=== PATIENT | male | born 1955 | race Caucasian/White ===

== ENCOUNTER 2016-09-25 21:15 | Emergency (ER) | payer OTHER ==
[~2016-09-25] VITALS: Ht 175.3 cm; Wt 78.3 kg
--- OUTSIDE RECORDS SUMMARY | 2016-09-25 21:19 | XMS REPORT | Referral Summary ---
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 Name Role Phone Betsy Mcfarland Primary Care Physician [phone] Encounter VC Date(s): 12/31/15 - 12/31/15 [facility] [address] [place], [place] [address] Discharge Diagnosis: Cellulitis Discharge Disposition: 01-Home or Self Care Attending Physician: Castro De La Vega DO Admitting Physician: Castro De La Vega DO Vital Signs Most recent to 1 oldest [Reference Range]: Temperature Oral 36.7 degC [35.8-37.3 degC] (12/31/15 5:49 PM) Peripheral Pulse 84 bpm Rate [60-100 bpm] (12/31/15 7:30 PM) Respiratory Rate 16 br/min [14-20 br/min] (12/31/15 7:30 PM) Blood Pressure 183/110 mmHg [90-140/60-90 mmHg] *HI* (12/31/15 7:30 PM) SpO2 92 % 1 (12/31/15 5:49 PM) 1Result Comment: pt states "emphysema, it is always low" Problem List Condition Effective Dates Status Health Status Informant Emphysema Active patient lung(Confirmed) Tobacco Active patient user(Confirmed) Allergies, Adverse Reactions, Alerts No Known Medication Allergies Medications Bactrim DS 800 mg-160 mg oral tablet 1 tabs, Oral, BID, X 10 days, # 20 tabs, 0 Refill(s) Start Date: 12/31/15 Stop Date: 01/10/16 Status: Ordered Flomax mg, Oral, Daily, 0 Refill(s) Start Date: 12/23/14 Status: Ordered glipiZIDE Oral, Daily, 0 Refill(s) Start Date: 12/23/14 Status: Ordered Keflex 500 mg oral capsule 500 mg 1 caps, Oral, q8hr, X 10 days, # 30 caps, 0 Refill(s) Start Date: 12/31/15 Stop Date: 01/10/16 Status: Ordered Micardis Oral, Daily, 0 Refill(s) Start Date: 12/23/14 Status: Ordered morphine 30 mg oral tablet 30 mg 1 tabs, Oral, q4hr, as needed for pain, 0 Refill(s) Start Date: 12/31/15 Status: Ordered naproxen 500 mg oral tablet 500 mg 1 tabs, Oral, BID, as needed for pain, # 20 tabs, 0 Refill(s) Start Date: 12/23/14 Status: Ordered oxyCODONE Oral, 0 Refill(s) Start Date: 12/23/14 Status: Ordered Results Hematology Most recent to 1 oldest [Reference Range]: WBC [4.8-10.8 9.7 10*3/uL 10*3/uL] (12/31/15 6:23 PM) RBC [4.60-6.20] 5.34 (12/31/15 6:23 PM) Hgb [14.0-18.0 16.3 gm/dL gm/dL] (12/31/15 6:23 PM) Hct [42.0-52.0 %] 48.2 % (12/31/15 6:23 PM) MCV [82.0-99.0 fL] 90.3 fL (12/31/15 6:23 PM) MCH [27.0-32.0 pg] 30.5 pg (12/31/15 6:23 PM) MCHC [32.0-36.0 33.8 gm/dL gm/dL] (12/31/15 6:23 PM) RDW [11.5-14.5 %] 14.7 % *HI* (12/31/15 6:23 PM) Platelet [150-400 267 10*3/uL 10*3/uL] (12/31/15 6:23 PM) MPV [9.4-12.3 fL] 11.0 fL (12/31/15 6:23 PM) Immature 0.1 % Granulocytes (12/31/15 6:23 PM) [0.0-1.0 %] Neutrophils [51-75 54 % %] (12/31/15 6:23 PM) Lymphocytes [20-46 32 % %] (12/31/15 6:23 PM) Monocytes [4-11 %] 11 % (12/31/15 6:23 PM) Eosinophils [0-4 %] 3 % (12/31/15 6:23 PM) Basophils [0-2 %] 1 % (12/31/15:23 PM) Neutro Absolute 5.29 10*3 [1.90-7.00 10*3] (12/31/15:23 PM) Lymph Absolute 3.07 10*3 [0.80-3.30 10*3] (12/31/15 6:23 PM) [place] Absolute 1.06 10*3 [0.30-1.00 10*3] *HI* (12/31/15:23 PM) Eos Absolute 0.24 10*3 [0.00-0.50 10*3] (12/31/15:23 PM) Baso Absolute 0.05 10*3 [0.00-0.20 10*3] (12/31/15:23 PM) Chemistry Most recent to 1 oldest [Reference Range]: Sodium Lvl [136-144 138 mEq/L mEq/L] (12/31/15:25 PM) Potassium Lvl 3.7 mEq/L [3.6-5.1 mEq/L] (12/31/15:25 PM) Chloride [99-109 103 mEq/L mEq/L] (12/31/15:25 PM) CO2 [22-32 mEq/L] 27 mEq/L (12/31/15:25 PM) AGAP [3-20] 8 (12/31/15:25 PM) BUN [4-20 mg/dL] 7 mg/dL (12/31/15 6:25 PM) Glucose Lvl [70-100 148 mg/dL mg/dL] *HI* (12/31/15:25 PM) Creatinine Lvl 0.54 mg/dL [0.64-1.27 mg/dL] *LOW* (12/31/15 6:25 PM) eGFR [>60] >60 1 (12/31/15:25 PM) Calcium Lvl 8.4 mg/dL [8.6-10.0 mg/dL] *LOW* (12/31/15 6:25 PM) 1Result Comment: Multiply eGFR results by 1.21 for race. Urinalysis Most recent to 1 oldest [Reference Range]: Type Venous (12/31/15 6:18 PM) Immunizations No data available for this section Procedures No data available for this section Social History Social History Type Response Smoking Status Current every day smoker; Type: Cigarettes Assessment and Plan No data available for this section
--- OUTSIDE RECORDS SUMMARY | 2016-09-25 21:19 | XMS REPORT | Referral Summary ---
Author Author [facility] Organization [facility] Address Unknown Phone Unavailable Care Team Providers Care Caponizer Name Role Phone No PCP, Pt States Primary Care Physician [phone] Encounter VC Date(s): 12/23/14 - 12/24/14 [facility] [address] [place] [address] Final: UNSPECIFIED DISORDER OF THE TEETH AND SUPPORTING STRUCTURES Discharge Diagnosis: Pain, dental Discharge Disposition: 01-Home or Self Care Attending Physician: Baljit Hernández MD Admitting Physician: Baljit Hernández MD Vital Signs Most recent to 1 oldest [Reference Range]: Temperature Oral 37.2 degC [35.8-37.3 degC] (12/24/14 12:02 AM) Peripheral Pulse 89 bpm Rate [60-100 bpm] (12/24/14 12:02 AM) Respiratory Rate 19 br/min [14-20 br/min] (12/24/14 12:02 AM) Blood Pressure 166/98 mmHg [90-140/60-90 mmHg] *HI* (12/24/14 12:02 AM) SpO2 99 % (12/24/14 12:02 AM) Problem List Condition Effective Dates Status Health Status Informant Emphysema Active patient lung(Confirmed) Tobacco Active patient user(Confirmed) Allergies, Adverse Reactions, Alerts No Known Medication Allergies Medications Flomax mg, Oral, Daily, 0 Refill(s) Start Date: 12/23/14 Status: Ordered glipiZIDE Oral, Daily, 0 Refill(s) Start Date: 12/23/14 Status: Ordered Micardis Oral, Daily, 0 Refill(s) Start Date: 12/23/14 Status: Ordered naproxen 500 mg oral tablet 500 mg 1 tabs, Oral, BID, as needed for pain, # 20 tabs, 0 Refill(s) Start Date: 12/23/14 Status: Ordered oxyCODONE Oral, 0 Refill(s) Start Date: 12/23/14 Status: Ordered Results No data available for this section Immunizations No data available for this section Procedures No data available for this section Social History Social History Type Response Smoking Status Current every day smoker; Type: Cigarettes Assessment and Plan No data available for this section
--- OUTSIDE RECORDS SUMMARY | 2016-09-25 21:19 | XMS REPORT | Continuity of Care Document ---
Author Author [facility] Organization [facility] Address Unknown Phone Unavailable Allergies Active Description Code Type Severity Reaction Onset Reported/Identified Relationship to Patient Clinical Status Yes No Known Medication Allergies NKMA N/A N/A 12/23/2014 Medications Medication Packaging Start Date Stop Date Route Dosage Sig traMADol(Ultram 50 mg oral tablet) 1 tabs 12/23/20142014 Oral 50 mg 50 mg=1 tabs, Oral, q6hr, for 3 days, PRN: as needed for pain, 12 tabs, 0 Refill(s) penicillin V potassium(penicillin V potassium 500 mg oral tablet) 1 tabs 201401/02/2015 Oral 500 mg 500 mg=1 tabs, Oral, q6hr, for 10 days, 40 tabs, 0 Refill(s) oxyCODONE(oxyCODONE) 12/23/2014 Oral Oral, 0 Refill(s) telmisartan(Micardis) 12/23/2014 Oral Oral, Daily, 0 Refill (s) glipiZIDE(glipiZIDE) 12/23/2014 Oral Oral, Daily, 0 Refill( s) naproxen(naproxen 500 mg oral tablet) 1 tabs 12/23/2014 Oral 500 mg 500 mg=1 tabs, Oral, BID, PRN: as needed for pain, 20 tabs, 0 Refill(s) tamsulosin(Flomax) 12/23/2014 Oral mg mg, Oral, Daily, 0 Refill(s) morphine(morphine 30 mg oral tablet) 1 tabs 12/31/2015 Oral 30 mg 30 mg=1 tabs, Oral, q4hr, PRN: as needed for pain, 0 Refill(s) sulfamethoxazole-trimethoprim(Bactrim DS 800 mg-160 mg oral tablet) 1 tabs 01/201601/10/2016 Oral 1 tabs, Oral, BID, for 10 days, 20 tabs, 0 Refill(s) cephalexin(Keflex 500 mg oral capsule) 1 caps 12/31/20152015 Oral 500 mg 500 mg=1 caps, Oral, q8hr, for 10 days, 30 caps, 0 Refill(s) sulfamethoxazole-trimethoprim(Bactrim DS 800 mg-160 mg oral tablet) 1 tabs 01/201612/31/2015 Oral 1 tabs, Oral, Once cephalexin(Keflex) 1 caps 12/31/2015 12/31/2015 Oral 500 mg 500 mg=1 caps, Oral, Once Problems Date Dx Coded Attending Type Code Diagnosis Diagnosed By 12/24/2014 Baljit Hernández MD Reason 525.9 UNSPECIFIED DISORDER OF THE TEETH AND SUPPORTING STRUCTURES 01/06/2016 De La Vega Matthew Final F17.210 Nicotine dependence, cigarettes, uncomplicated 01/06/2016 De La Vega Matthew Final L03.114 Cellulitis of left upper limb 01/06/2016 De La Vega Matthew Reason M79.89 Other specified soft tissue disorders Procedures Results Encounters ACCT No. Visit Date/Time Discharge Status Pt. Type Provider Facility Loc./Unit Complaint [id number] 12/31/2015 17:36:00 2015 19:33:00 DIS Emergency De La Vega Matthew [facility] on [facility] ED l hand swollen [id number] 12/23/2014 23:18:00 2014 00:02:00 DIS Emergency Baljit Hernández MD [facility] on [facility] ED dental pain [id number] 01/01/2016 05:15:44 Document Registration [id number] 04/14/2015 13:05:23 Document Registration [id number] 04/14/2015 12:58:37 Document Registration
--- OUTSIDE RECORDS SUMMARY | 2016-09-25 21:54 | XMS REPORT | Continuity of Care Document ---
Author Author [facility] Organization [facility] Address Unknown Phone Unavailable Allergies Active Description [...] Status Pt. Type Provider Facility Loc./Unit Complaint [id number] 12/31/2015 17:36:00 2015 19:33:00 DIS Emergency De La Vega Matthew [facility] on [facility] ED l hand swollen [id number] 12/23/2014 23:18:00 2014 00:02:00 DIS Emergency Baljit Hernández MD [facility] on [facility] ED dental pain [id number] 01/01/2016 05:15:44 Document Registration [id number] 04/14/2015 13:05:23 Document Registration [id number] 04/14/2015 12:58:37 Document Registration
[2016-09-25 21:57] VITALS: Ht 175.3 cm; Wt 78.3 kg
[2016-09-25] MEDS ORDERED: B/P MED (22:18)
[2016-09-25] MEDS ORDERED: PAIN MED (22:19)
[2016-09-25] MEDS ORDERED: ORAL DIABETIC MED (22:19)
--- NOTE | 2016-09-25 22:25 | ERPDOC ---
Departure Disposition Decision Date: Sep 25, 2016 Disposition Decision Time: 22:46 (BRITTON VIEIRA APRN) Disposition: 01 DISCHARGED HOME, SELF-CARE Impression Impression (BRITTON VIEIRA APRN) Impression: Primary Impression: Bloody emesis Nausea presence: with nausea Qualified Codes: K92.0 - Hematemesis; R11.0 - Nausea Severity: Moderate (BRITTON VIEIRA APRN) Condition: Stable Seen By: Mid-level only (BRITTON VIEIRA APRN) Patient Instructions: Acute Nausea and Vomiting (ED) Problems/Meds/Labs Reviewed?: Yes Medications reviewed and manag: Yes (BRITTON VIEIRA APRN) Additional Instructions: Your labs today are normal. I do want you to monitor your symptoms at home. You have have irritated the back of your throat or have a minor tear in your esophagus as the source for the bleeding. Blood from the stomach is typically dark red/brown. If you have any abdominal pain, continued nausea, or repeated episodes of bloody vomiting then please return to ER for reevaluation. Follow up care ordered?: Yes Mental Status: Alert, Oriented (BRITTON VIEIRA APRN) HPI - General Medical General Chief Complaint: General Stated Complaint: VOMITTED BLOOD Time Seen by Provider: 21:46 Source: patient Exam Limitations: no limitations (BRITTON VIEIRA APRN) Time Seen by Provider: 21:46 (OCTOBERLYNNE DO) HPI - General Medical Initial Comments He ate dinner this evening and was very full. Baxter a little nauseated so he went to the bathroom to stick his finger down his throat. He felt like if he vomited he may feel better. Did have an episode of emesis that had some bright red blood. This was about an hour before coming to ER. His was concerned about this so had him come to ER. He is not having any pain or nausea. Has never had this happen before. Denies any abdominal pain. Occurred At: home Onset: Rapid Duration: 1 hr Severity: moderate Associated Symptoms: nausea/vomiting, DENIES: chest pain, cough, diaphoresis, fever/chills, headaches, loss of appetite, malaise, rash, seizure, shortness of breath, syncope, weakness Hx of Similar Symptoms: No (NOLD,BRITTON N SPORTS OFFICIAL) Allergies: Coded Allergies: No Known Allergies (Unverified , 09/25/16) Past History Patient Medical History Problem List Updates: Concussion (NOLD,BRITTON N SPORTS OFFICIAL) Surgical History General: tonsils (NOLD,BRITTON N SPORTS OFFICIAL) Review of Systems Constitutional Constitutional: DENIES: chills, dizziness, fatigue, fever, weakness (NOLD, BRITTON N [employer]OR[employer] OFFICIAL) Cardiovascular Cardiac: DENIES: chest pain, orthopnea Rhythm/Rate: DENIES: irregular beat, palpitations (NOLD,BRITTON N [employer]OR[employer] OFFICIAL) Pulmonary Respiratory: DENIES: cough, dyspnea, sputum, tachypnea (NOLD,BRITTON N SPOR[employer] OFFICIAL) GI Upper Abdomen: DENIES: nausea, pain, vomiting Lower Abdomen: DENIES: constipation, diarrhea, pain (NOLD,BRITTON N SPORTS OFFICIAL) Integumentary Skin: DENIES: rash (NOLD,BRITTON N SPORTS OFFICIAL) Neurological General: DENIES: headache, numbness, tingling, weakness (NOLD,BRITTON N SPORTS OFFICIAL) Physical Exam General General Nourishment: well nourished, well developed, appears stated age, no acute distress, adult General Body Habitus: well groomed (NOLD,BRITTON N SPORTS OFFICIAL) Vitals and Pain First Documented Vital Signs Date Time Temp Pulse Resp B/P Pulse Ox O2 Delivery O2 Flow Rate FiO2 09/25/16 21:57 98.4 80 16 128/77 94 Room Air (OCTOBER,LYNNE M DO) Vitals and Pain Weight: Kilograms: 78.300 Height (feet): 5 Height (inches): 9.00 Triage Pain Scale: (NOCAROLYN,BRITTON N SPORTS OFFICIAL) RN VS reviewed by Provider: Yes (NOBRITTON LEON N SPORTS OFFICIAL) Normal Exams: Neck: Full range of motion, without adenopathy, JVD, bruits or thyromegaly Chest/Resp: Clear all bob, with good airflow, and symmetry bilaterally CV: Regular rate and rhythm, without murmur or gallop, Pulses 2+ all extremities, capillary refill, <2 seconds all ext., no pedal edema noted Abdomen: Bowel sounds positive, soft, non-tender, non-distended, no hepatosplenomegaly, masses or bruits noted Lymphatic: No lymphadenopathy, or lymphedema noted Integumentary: No rashes, hives, or bruising noted Neurologic: Patient is alert, and oriented Psychiatric: Patient exhibits, appropriate attention, emotion and affect (TEOLD,BRITTON N SPORTS OFFICIAL) Differential Diagnoses Considering: Other (GI bleed, esophogeal varices, rey/barahona tear) (ISHA,BRITTON N SPORTS OFFICIAL) Progress Results/Orders Orders Procedure Category Date Status Time Cbc W/Auto LAB 09/25/16 Complete Diff-Reflex Manual Bmp - Basic Metabolic LAB 09/25/16 Complete Panel () Lab Results Laboratory Tests Test 09/25/16 22:30 White Blood Count 14.2T/MM3 Red Blood Count 4.75M/MM3 Hemoglobin 15.0GM/DL Hematocrit 44.0% Mean Corpuscular Volume 92.6UM3 Mean Corpuscular Hemoglobin 31.6UUG Mean Corpuscular Hemoglobin Concent 34.1GM/DL RDW Standard Deviation 47.2FL Platelet Count 315T/MM3 Mean Platelet Volume 10.8UM3 Immature Granulocyte % (Auto) 0.2% Neutrophils (%) (Auto) 59.7% Lymphocytes (%) (Auto) 29.0% Monocytes (%) (Auto) 9.4% Eosinophils (%) (Auto) 1.3% Basophils (%) (Auto) 0.4% Absolute Immature Granulocyte (auto 0.03T/MM3 Absolute Neutrophils (auto) 8.5T/MM3 Absolute Lymphocytes (auto) 4.1T/MM3 Absolute Monocytes (auto) 1.3T/MM3 Absolute Eosinophils (auto) 0.2T/MM3 Absolute Basophils (auto) 0.1T/MM3 Turbidity < 20 Sodium Level 140MEQ/L Potassium Level 4.2MEQ/L Chloride Level 101MEQ/L Carbon Dioxide Level 29MEQ/L Anion Gap 10MEQ/L Blood Urea Nitrogen 20.0MG/DL Creatinine 0.6MG/DL Glomerular Filtration Rate Calc 136 BUN/Creatinine Ratio 33RATIO Glucose Level 118MG/DL Calculated Osmolality 273MOSM/KG Calcium Level 9.4MG/DL Icterus Index < 2 Chemistry Specimen Hemolysis < 15 () Progress Progress CBC and BMP today are normal. Has had no further nausea or vomiting while in Er. Will go ahead and let him go home today. Follow up with his PCP if any further issues/concerns. (BRITTON VIEIRA APRN) BRITTON VIEIRA APRN Sep 25, 2016 22:25 OCTOBER,LYNNE Smith DO Sep 25, 2016 23:16
--- NOTE | 2016-09-25 22:30 | NUR ---
LAB LAB AT BEDSIDE FOR BLOOD DRAW
[2016-09-25 22:34] LABS: BASOPHILS # (AUTO) 0.1 T/MM3 (0-0.2); BASOPHILS % (AUTO) 0.4 % (0-2); EOSINOPHILS # (AUTO) 0.2 T/MM3 (0-0.5); EOSINOPHILS % (AUTO) 1.3 % (0-4); IMMATURE GRANULOCYTE # (AUTO) 0.03 T/MM3 (0.00-0.03); IMMATURE GRANULOCYTE % (AUTO) 0.2 % (0.0-0.5); LYMPHOCYTES # (AUTO) 4.1 T/MM3 (1-4.8); MEAN CORPUSCULAR HGB 31.6 UUG (26-34); MEAN CORPUSCULAR HGB CONC(MCHC 34.1 GM/DL (31-37); MEAN CORPUSCULAR VOLUME 92.6 UM3 (80-100); MEAN PLATELET VOLUME 10.8 UM3 (9.4-12.4); MONOCYTES # (AUTO) 1.3 T/MM3 (0-0.8); MONOCYTES % (AUTO) 9.4 % (0-9.0); NEUTROPHILS #(AUTO)-ABSOLUTE 8.5 T/MM3 (1.8-7.7); NEUTROPHILS % (AUTO) 59.7 % (33-66); RED BLOOD COUNT 4.75 M/MM3 (4.50-5.90); WBC - WHITE BLOOD COUNT 14.2 T/MM3 (4.5-11.0)
[2016-09-25 22:44] LABS: ANION GAP 10 MEQ/L (5-15); BUN/CREATININE RATIO 33 RATIO (6-26); CALCIUM 9.4 MG/DL (8.4-10.2); CHLORIDE 101 MEQ/L (98-107); CO2 - CARBON DIOXIDE 29 MEQ/L (22-30); CREATININE 0.6 MG/DL (0.8-1.5); GLOMERULAR FILTRATION RATE 136; GLUCOSE 118 MG/DL (75-110); POTASSIUM 4.2 MEQ/L (3.6-5); SODIUM 140 MEQ/L (134-144)
--- NOTE | 2016-09-25 22:51 | NUR ---
INSTRUCTIONS DISMISSAL INSTRUCTIONS GIVEN TO PT VERBALIZED UNDERSTANDING OF ALL
[2016-09-25 22:52] VITALS: BP 131/76; PULSE 84; RESP 16; TEMP 98.4; O2SAT 95
--- NOTE | 2016-09-25 22:52 | NUR ---
DISMISS PT DISMISSED AMBULATORY WITH SPOUSE
== END 2016-09-25 22:52 | disposition home or self-care (01) ==
LOC: ED 21:15
DX: K92.0 Hematemesis (principal)
CPT/HCPCS: 36415; 80048; 85025